=== PATIENT | female | born 1960 ===

== ENCOUNTER 2018-05-17 22:05 | Emergency (ER) | payer OTHER ==
[2018-05-17 22:21] VITALS: PULSE 64; RESP 18; O2SAT 96
--- NOTE | 2018-05-17 23:42 | C.PDOC ---
History Of Present Illness 57 year old male presents to the ER with a complaint of left periorbital ecchymosis and headache that began when she woke up 2100, associated with nausea and photophobia. Patient states she had a trip and fall 2 days ago while at work, sustaining a head injury to the left side of the scalp. At the time she was dazed but no LOC, she was seen at [facility] where she had pearl x10 and sutures x5 placed, and had a CT head which was read negative. Patient reports she had the headache initially after the fall and it was focused on the left side but is now radiating to the right side. Denies vomiting, weakness, or numbness. She has been taking pain medication at home for the headache with relief. Time Seen by Provider: 05/17/18 22:29 Chief Complaint (Nursing): Eye Problem History Per: Patient History/Exam Limitations: no limitations Onset/Duration Of Symptoms: Days (2) Current Symptoms Are (Timing): Still Present Injury To Eye?: No Wears Contact Lens?: No Associated Symptoms: Other (Photophobia, periorbital ecchymosis) Recent travel outside of the [place]: No Past Medical History Reviewed: Historical Data, Nursing Documentation, Vital Signs Vital Signs: Last Vital Signs Temp 98.7 F 05/17/18 22:12 Pulse 64 05/17/18 22:12 Resp 18 05/17/18 22:12 BP 124/78 05/17/18 22:12 Pulse Ox 96 05/17/18 22:12 - Medical History PMH: Asthma Surgical History: Cholecystectomy Family History: States: Unknown Family Hx - Social History Hx Alcohol Use: No Hx Substance Use: No - Immunization History Hx Tetanus Toxoid Vaccination: No Hx Influenza Vaccination: No Hx Pneumococcal Vaccination: No Review Of Systems Constitutional: Negative for: Fever, Chills Eyes: Positive for: Other (Photophobia. Left periorbital ecchymosis) Musculoskeletal: Negative for: Neck Pain Neurological: Positive for: Headache. Negative for: Weakness, Numbness Physical Exam - Physical Exam Appears: Non-toxic Skin: Warm, Dry Head: Normacephalic, Other (Pearl visualized on the left frontal scalp, no obvious hematoma) Eye(s): bilateral: PERRL, EOMI, left: Other (Periorbital ecchymosis, no exophthalmos) Nose: Normal Oral Mucosa: Moist Neck: Normal, No Midline Cervical Tenderness, No Paracervical Tenderness, Supple Neurological/Psych: Oriented x3, Normal Speech, Normal Motor, Normal Sensation Gait: Steady ED Course And Treatment O2 Sat by Pulse Oximetry: 96 (Room air) Pulse Ox Interpretation: Normal Progress Note: Tylenol administered. CT head ordered, results were negative. Results d/w pt, post concussion symptoms also discussed including return precautions. Patient is resting comfortably in the ER in no acute distress, vitals are stable, will discharge home with Rx and instructions to follow up with PMD or return if symptoms worsen. Disposition - Disposition Referrals: Wagner Belle MD [Staff Provider] - [facility] [Outside] Disposition: HOME/ ROUTINE Disposition Time: 00:33 Condition: STABLE Additional Instructions: Tylenol or advil for pain Follow up with PMD Return to ER in 12 hours or earlier if symptoms do not improve or are getting worse Instructions: Contusion (DC), Postconcussion Syndrome (DC) Forms: [employer] (Surinamese) - Clinical Impression Clinical Impression: Periorbital contusion of left eye, Post concussion syndrome - PA / FOOD SAFETY AUDITOR / Resident Statement MD/DO has reviewed & agrees with the documentation as recorded. - Scribe Statement The provider has reviewed the documentation as recorded by the Scribe Damien Calle All medical record entries made by the Scribe were at my direction and personally dictated by me. I have reviewed the chart and agree that the record accurately reflects my personal performance of the history, physical exam, medical decision making, and the department course for this patient. I have also personally directed, reviewed, and agree with the discharge instructions and disposition.
[2018-05-18 00:36] VITALS: BP 133/77; TEMP 98.2
--- NOTE | 2018-05-18 08:26 | CT ---
Date of service: 05/17/2018 PROCEDURE: CT HEAD WITHOUT CONTRAST. HISTORY: headache, head injury. COMPARISON: None available. TECHNIQUE: Axial computed tomography images were obtained through the head/brain without intravenous contrast. Radiation dose: Total exam DLP = 998.16 mGy-cm. This CT exam was performed using one or more of the following dose reduction techniques: Automated exposure control, adjustment of the mA and/or kV according to patient size, and/or use of iterative reconstruction technique. FINDINGS: HEMORRHAGE: No intracranial hemorrhage. BRAIN: No mass effect or edema. Scattered focal lucencies in the subcortical and periventricular white matter suggestive for chronic microvascular ischemic change. VENTRICLES: Unremarkable. No hydrocephalus. CALVARIUM: Unremarkable. PARANASAL SINUSES: Unremarkable as visualized. No significant inflammatory changes. MASTOID AIR CELLS: Unremarkable as visualized. No inflammatory changes. OTHER FINDINGS: Surgical pearl seen overlying the high frontal parietal cranium. IMPRESSION: Scattered focal lucencies in the subcortical and periventricular white matter which may represent chronic microvascular ischemic changes; however, additional etiologies are not excluded. If symptoms persists, consider correlation with MRI. A preliminary report was generated at 12:14 a.m. on 05/18/[address] Manolo Martínez from [id number].
== END 2018-05-18 00:52 | disposition home or self-care (01) ==
LOC: C.ER 22:05
DX: F07.81 Postconcussional syndrome (principal); S00.12XA Contusion of left eyelid and periocular area, initial encounter; W01.0XXA Fall on same level from slipping, tripping and stumbling without subsequent striking against object, initial encounter; Y99.0 Civilian activity done for income or pay

== ENCOUNTER 2018-06-11 11:28 | Emergency (ER) | payer MEDICAID, OTHER ==
--- NOTE | 2018-06-11 12:44 | C.PDOC ---
History Of Present Illness 57 year old female, whose past medical history includes asthma, presents to the ED for evaluation of cough and congestion for 5 days. Patient states she ran out of her asthma medications and has started to feel short of breath. Additionally, patient reports having non-bloody loose diarrhea today. Patient denies fever, chills, abdominal pain, vomiting. Time Seen by Provider: 06/11/18 12:09 Chief Complaint (Nursing): Flu-like Symptoms History Per: Patient History/Exam Limitations: no limitations Onset/Duration Of Symptoms: Days (5) Current Symptoms Are (Timing): Still Present Associated Symptoms: Cough, Nasal Congestion, Diarrhea (loose). denies: Fever, Chills, Vomiting Additional History Per: Patient Past Medical History Reviewed: Historical Data, Nursing Documentation, Vital Signs Vital Signs: Last Vital Signs Temp 98 F 06/11/18 11:30 Pulse 78 06/11/18 11:30 Resp 16 06/11/18 11:30 BP 144/72 06/11/18 11:30 Pulse Ox 98 06/11/18 11:30 - Medical History PMH: Asthma Surgical History: Cholecystectomy Family History: States: Unknown Family Hx - Social History Hx Alcohol Use: No Hx Substance Use: No - Immunization History Hx Tetanus Toxoid Vaccination: No Hx Influenza Vaccination: No Hx Pneumococcal Vaccination: No Review Of Systems Constitutional: Negative for: Fever, Chills Respiratory: Positive for: Shortness of Breath Gastrointestinal: Positive for: Nausea, Diarrhea (non-bloody, loose ). Negative for: Vomiting, Abdominal Pain Physical Exam - Physical Exam Appears: Non-toxic, No Acute Distress Skin: Normal Color, Warm, Dry Head: Atraumatic, Normacephalic Eye(s): bilateral: Normal Inspection Ear(s): Bilateral: Normal Nose: Normal, No Discharge Oral Mucosa: Moist Throat: No Erythema, No Exudate Neck: Supple Chest: Symmetrical, No Deformity, No Tenderness Cardiovascular: Rhythm Regular, No Murmur Respiratory: Normal Breath Sounds, No Rhonchi, No Wheezing, Other (dry cough noted) Extremity: Normal ROM, Capillary Refill (less than 2 seconds ) Neurological/Psych: Oriented x3, Normal Speech, Normal Cognition ED Course And Treatment O2 Sat by Pulse Oximetry: 98 (on RA) Pulse Ox Interpretation: Normal Medical Decision Making Medical Decision Making: Impression: 57 year old female with cough, congestion, shortness of breath, non- bloody loose diarrhea Plan: * Zithromax PO * reassess and disposition Progress: Zithromax PO given. On reassessment, patient is resting comfortably, showing no signs of distress and is stable for discharge. Patient is advised to follow up with PMD within 1-2 days for further evaluation and/or return to the ED if symptoms persist or worsen. Disposition Counseled Patient/Family Regarding: Diagnosis, Need For Followup, Rx Given - Disposition Referrals: [facility] [Outside] [facility] [Outside] Disposition: HOME/ ROUTINE Disposition Time: 12:42 Condition: GOOD Additional Instructions: Vaya a marie mdico o la clnica en 2-5 mandel sin falta, para mas evaluacin. [place] los medicamentos zeinab indicado. Volver a la tonny de emergencia en cualquier momento si los sntomas persisten o empeoran. 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 - Scribe Statement The provider has reviewed the documentation as recorded by the Scribe (Valarie Masters) All medical record entries made by the Scribe were at my direction and personally dictated by me. I have reviewed the chart and agree that the record accurately reflects my personal performance of the history, physical exam, medical decision making, and the department course for this patient. I have also personally directed, reviewed, and agree with the discharge instructions and disposition.
[2018-06-11 12:52] VITALS: BP 120/74; PULSE 68; RESP 18; TEMP 97.7
[2018-06-11 13:09] VITALS: O2SAT 98
== END 2018-06-11 13:06 | disposition home or self-care (01) ==
LOC: C.ER 11:28
DX: J06.9 Acute upper respiratory infection, unspecified (principal)

== ENCOUNTER 2018-09-19 15:24 | Emergency (ER) | payer OTHER ==
[2018-09-19 15:30] VITALS: RESP 16; TEMP 97.3; O2SAT 98
--- NOTE | 2018-09-19 15:41 | C.PDOC ---
History Of Present Illness 57 yr old F w/ no ppmhx p/w knee pain. She notes mechanical fall this morning while walking on the sidewalk. She noted slipping on uneven cement and hitting her left knee. She also notes L ankle pain. She denies any pain on any other part of her body. No headache or head impact. No LOC. No chest pain or sob. No abdominal pain or back pain. No neck pain. No blood thinner usage. No family hx of bleeding disorders. No other complaints. Time Seen by Provider: 09/19/18 15:41 Chief Complaint (Nursing): Lower Extremity Problem/Injury Past Medical History Vital Signs: Last Vital Signs Temp 97.3 F L 09/19/18 15:28 Pulse 71 09/19/18 15:28 Resp 16 09/19/18 15:28 BP 143/79 09/19/18 15:28 Pulse Ox 98 09/19/18 15:28 - Medical History PMH: Asthma Surgical History: Cholecystectomy Family History: States: Unknown Family Hx - Social History Hx Alcohol Use: No Hx Substance Use: No - Immunization History Hx Tetanus Toxoid Vaccination: No Hx Influenza Vaccination: No Hx Pneumococcal Vaccination: No Review Of Systems Constitutional: Negative for: Fever, Chills, Sweats, Weakness, Malaise, Weight loss Eyes: Negative for: Pain, Vision Change, Conjunctivae Inflammation, Eyelid Inflammation, Redness ENT: Negative for: Ear Pain, Ear Discharge, Nose Pain, Nose Discharge, Nose Congestion, Mouth Pain, Mouth Swelling, Throat Pain Cardiovascular: Negative for: Chest Pain, Palpitations, Orthopnea, Paroxysmal Noc. Dyspnea, Edema, Light Headedness Respiratory: Negative for: Cough, Shortness of Breath, Hemoptysis, SOB with Excertion, Pleuritic Pain, Sputum Gastrointestinal: Negative for: Nausea, Vomiting, Abdominal Pain, Diarrhea, Constipation, Melena, Hematochezia, Hematemesis Genitourinary: Negative for: Dysuria, Frequency, Hematuria, Vaginal Discharge Musculoskeletal: Positive for: Leg Pain (L knee and ankle). Negative for: Neck Pain, Shoulder Pain, Arm Pain, Back Pain Neurological: Negative for: Weakness, Numbness, Incoordination, Confusion, Seizures Psych: Negative for: Anxiety, Depression Physical Exam - Physical Exam Appears: Well, Non-toxic, No Acute Distress Skin: Normal Color, Warm Head: Atraumatic, Normacephalic, No Tenderness, No Swelling, No Abrasion, No Laceration Eye(s): bilateral: Normal Inspection, PERRL, EOMI Ear(s): Bilateral: Normal Nose: Normal, No Flaring, No Discharge, No Epistaxis, No Deformity, No Tenderness, No Septal Hematoma Oral Mucosa: Moist, No Drooling, No Trismus Tongue: Normal Appearing, No Swelling, No Lesions Gingiva: Normal Appearing, No Erythema Throat: Normal, No Erythema, No Exudate Neck: Normal, Normal ROM, No Midline Cervical Tenderness, No Paracervical Tenderness, No Step Off Deformity, Supple, Other (no meningeal signs) Lymphatic: Normal Exam, No Adenopathy Cardiovascular: Rhythm Regular Respiratory: Normal Breath Sounds Gastrointestinal/Abdominal: Normal Exam Back: Normal Inspection, No CVA Tenderness, No Vertebral Tenderness, No Muscle Spasm, No Paraspinal Tenderness Extremity: Normal ROM, Tenderness (R anterior knee , L lateral mallelous), No P edal Edema, No Calf Tenderness (negative L thompsons), Capillary Refill (normal distally), No Deformity, No Swelling, Other (Full rom. N/V intact distally. No erythema or crepitus. ) Extremity: Bilateral: Hips Non-Tender Neurological/Psych: Oriented x3, Normal Speech, Normal Cognition, No Cerebellar Signs, Normal Motor Gait: Steady ED Course And Treatment O2 Sat by Pulse Oximetry: 98 Medical Decision Making Medical Decision Makin F w/ no ppmhx p/w L knee pain and ankle pain after fall. No abrasions noted. Fully N/V intact distally. No neck pain or headache. No head impact or loc. No bending backwards of knee. Negative thompsons, no overlying erythema or increased warmth. Likely MSK strain vs FX. Pending imaging, reassessment. 1706 Xrays unremarkable pain improved given crutches, rafal wrap placed w/ good n/v status distally. to follow up w/ Ortho. Pt in NAd, agreeable to plan, good gait w/ crutches Disposition - Disposition Referrals: [facility] [Outside] [facility] [Outside] [facility] [Outside] Timoteo Faye MD [Staff Provider] - Disposition Time: 17:07 Condition: GOOD Additional Instructions: KAREN CORREA, thank you for letting us take care of you today. Your provider was Faustino Isabel and you were treated for FALL. The emergency medical care you received today was directed at your acute symptoms. If you were prescribed any medication, please fill it and take as directed. It may take several days for your symptoms to resolve. Return to the Emergency Department if your symptoms worsen, do not improve, or if you have any other problems. Please contact your doctor or call one of the physicians/clinics you have been referred to that are listed on the Patient Visit Information form that is included in your discharge packet. Bring any paperwork you were given at discharge with you along with any medications you are taking to your follow up visit. Our treatment cannot replace ongoing medical care by a primary care provider outside of the emergency department. Thank you for allowing the [employer] team to be part of your care today. If you had an X-Ray or CT scan: A Radiologist will review the ED reading if any change in treatment is needed we will contact you. If you had a blood, urine, or wound culture: It will take several days for the results, if any change in treatment is needed we will contact you. If you had an STI test: It will take 48 hours for the results. Please call after 1 week if you have not heard back. Instructions: Preventing Falls in the Older Adult, Ankle Sprain (DC), Knee Sprain (DC) Forms: [employer] (Spanish) - Clinical Impression Clinical Impression: Knee injury, Ankle sprain, Fall
--- NOTE | 2018-09-19 16:53 | RAD ---
Left knee three views HISTORY: Fall. COMPARISON: None available. Findings: No evidence of acute displaced fracture or dislocation. No significant suprapatellar joint effusion. Impression: Negative acute. If pain persists, consider MRI.
--- NOTE | 2018-09-19 17:02 | RAD ---
Left ankle three views HISTORY: Fall. COMPARISON: None available. Findings: No evidence of acute displaced fracture or dislocation. Bony excrescence off the medial cortex of the talus on the oblique view. Plantar and dorsal calcaneal spurring. Productive change at the level of the dorsal midfoot. Impression Negative acute. If pain persists, consider MRI.
[2018-09-19 17:52] VITALS: BP 141/86; PULSE 78
== END 2018-09-19 17:51 | disposition home or self-care (01) ==
LOC: C.ER 15:24
DX: S89.92XA Unspecified injury of left lower leg, initial encounter (principal); S93.402A Sprain of unspecified ligament of left ankle, initial encounter; W01.0XXA Fall on same level from slipping, tripping and stumbling without subsequent striking against object, initial encounter; Y93.01 Activity, walking, marching and hiking; Y92.480 Sidewalk as the place of occurrence of the external cause

== ENCOUNTER 2018-11-09 12:01 | Emergency (ER) | payer MEDICAID, OTHER ==
--- NOTE | 2018-11-09 13:57 | RAD ---
Date of service: 11/09/2018 PROCEDURE: Radiographs of the Chest and Left Ribs. HISTORY: rin injury, pleuritic pain COMPARISON: Not available. TECHNIQUE: Frontal radiograph of the chest and multiple oblique radiographs of the left ribs were obtained. 4 views obtained. FINDINGS: LEFT RIBS: No fracture or focal lesion visualized. LUNGS: Clear. PLEURA: No pneumothorax or pleural fluid. CARDIOVASCULAR: Normal cardiac size. No pulmonary vascular congestion. No aortic atherosclerotic calcification present OTHER FINDINGS: None. IMPRESSION: Unremarkable radiographs of the chest and left ribs. No left rib fracture..
[2018-11-09 14:27] VITALS: BP 105/62; PULSE 52; RESP 20; TEMP 98.2; O2SAT 97
--- NOTE | 2018-11-09 14:27 | C.PDOC ---
History Of Present Illness Patient is a 58 year old female who presents to the ED c/o left rib pain that developed at work after something fell on her 2 days ago. Patient states that since then her pain has been constant and is worse with movement and deep breathing. She denies any other injuries, SOB, hemoptysis, or abdominal pain. Time Seen by Provider: 11/09/18 12:49 Chief Complaint (Nursing): Rib Injury History Per: Patient History/Exam Limitations: no limitations Onset/Duration Of Symptoms: Days (2) Current Symptoms Are (Timing): Still Present Pain Scale Rating Of: 6 Location: L ribs Quality: sharp Recent travel outside of the [place]: No Past Medical History Reviewed: Historical Data, Nursing Documentation, Vital Signs Vital Signs: Last Vital Signs Temp 98.5 F 11/09/18 12:34 Pulse 67 11/09/18 12:34 Resp 18 11/09/18 12:34 BP 139/86 11/09/18 12:34 Pulse Ox 97 11/09/18 12:34 Primary Care Provider: FAMILY PROVIDER,NO - Medical History PMH: Asthma Surgical History: Cholecystectomy Family History: States: Unknown Family Hx - Social History Hx Alcohol Use: No Hx Substance Use: No - Immunization History Hx Tetanus Toxoid Vaccination: No Hx Influenza Vaccination: No Hx Pneumococcal Vaccination: No Review Of Systems Except As Marked, All Systems Reviewed And Found Negative. Respiratory: Negative for: Shortness of Breath, Hemoptysis Gastrointestinal: Negative for: Abdominal Pain Musculoskeletal: Positive for: Other (left rib pain ) Physical Exam - Physical Exam Appears: Non-toxic, No Acute Distress Skin: Warm, Dry, No Rash, No Ecchymosis Head: Atraumatic, Normacephalic Eye(s): bilateral: Normal Inspection, PERRL, EOMI Oral Mucosa: Moist Throat: No Erythema, No Exudate Neck: Normal ROM, Supple Chest: Symmetrical, No Deformity, Tenderness (left anterior rib tenderness at level of 7th to 8th ribs ), No Ecchymosis, No Subcutaneous Emphysema Cardiovascular: Rhythm Regular, No Friction Rub, No Murmur Respiratory: Normal Breath Sounds, No Rales, No Rhonchi, No Wheezing Gastrointestinal/Abdominal: Soft, No Tenderness Back: No Vertebral Tenderness, No Paraspinal Tenderness Extremity: Normal ROM, No Swelling Neurological/Psych: Oriented x3, Normal Speech Gait: Steady ED Course And Treatment O2 Sat by Pulse Oximetry: 97 (on RA) Pulse Ox Interpretation: Normal - Other Rad Xray Lft Ribs X-Ray: Viewed By Me, Read By Radiologist Interpretation: Date of service: 11/09/2018. PROCEDURE: Radiographs of the Chest and Left Ribs. HISTORY: rin injury, pleuritic pain. COMPARISON: Not available. TECHNIQUE: Frontal radiograph of the chest and multiple oblique radiographs of the left ribs were obtained. 4 views obtained. FINDINGS: LEFT RIBS: No fracture or focal lesion visualized. LUNGS: Clear. PLEURA: No pneumothorax or pleural fluid. CARDIOVASCULAR: Normal cardiac size. No pulmonary vascular congestion. No aortic atherosclerotic calcification present. OTHER FINDINGS: None. IMPRESSION: Unremarkable radiographs of the chest and left ribs. No left rib fracture.. Medical Decision Making Medical Decision Making: Plan: Xray Lft Ribs Ultram 50mg PO Tylenol 650mg PO On re-exam, the patient reports improvement of symptoms. Lungs are CTA, heart is RRR, abdomen is soft, non-tender and tolerating PO well. Pt ambulatory in the ED with steady gait. Disposition - Disposition Referrals: [facility] [Outside] Disposition: HOME/ ROUTINE Disposition Time: 14:18 Condition: STABLE Additional Instructions: Follow up with the medical doctor within 1-2 days. Return if worsened. 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 - Scribe Statement The provider has reviewed the documentation as recorded by the Yamileth Luna All medical record entries made by the Scribe were at my direction and personally dictated by me. I have reviewed the chart and agree that the record accurately reflects my personal performance of the history, physical exam, medical decision making, and the department course for this patient. I have also personally directed, reviewed, and agree with the discharge instructions and disposition.
== END 2018-11-09 14:34 | disposition home or self-care (01) ==
LOC: C.ER 12:01
DX: S20.212A Contusion of left front wall of thorax, initial encounter (principal); W22.8XXA Striking against or struck by other objects, initial encounter